=== PATIENT | female | born 2000 | race Caucasian/White ===

== ENCOUNTER 2024-08-27 09:32 | Emergency (ER) | payer OTHER ==
[2024-08-27 10:27] LABS: Specific Gravity 1.023 (1.005-1.030); Sqamous Epithelial <5 /HPF (None Seen); Urine Bacteria <20 /HPF (<20); Urine Bilirubin NEGATIVE (Negative); Urine Blood Negative (Negative); Urine Clarity Turbid (Clear); Urine Color Yellow (Yellow); Urine Culture Reflex Order REFLEXED; Urine Glucose NEGATIVE (Negative); Urine Ketones NEGATIVE (Negative); Urine Microscopic Reflex YN ORDER UMIC; Urine Mucus Slight /HPF (None Seen); Urine Nitrite NEGATIVE (Negative); Urine Protein TRACE (Negative); Urine RBC <5 /HPF (None Seen); Urine Urobilinogen Normal (Normal)
[2024-08-27 10:34] LABS: Absolute Basophils 0.1 K/uL (0-0.5); Absolute Eosinophils 0.2 K/uL (0-0.5); Absolute Lymphocytes (CBC) 1.7 K/uL (0.7-4.9); Absolute Monocytes 0.5 K/uL (0.1-1.3); Absolute Neutrophil 4.1 K/uL (1.8-8.0); Basophils % 0.8 % (0-1.3); Eosinophils % 3.4 % (0-4.4); Hematocrit 38.4 % (36.0-45.0); Hemoglobin 13.1 g/dL (12.0-15.0); Lymphocytes % 25.8 % (15.3-44.8); MCHC 34.2 g/dL (32.0-36.0); MCV 87.9 fL (80-100); MPV 9.7 fL (7.6-11.3); Monocytes % 7.6 % (3.3-12.3); Neutrophils % 62.4 % (41.7-73.7); Nucleated Red Blood Cells % 0.1 % (0-0); Platelets 278 thou/uL (152-406); RBC Red Blood Cell Count 4.37 M/uL (3.86-4.86); Red Cell Distribution Width 13.3 % (12.1-15.2)
[2024-08-27 10:40] LABS: Albumin 3.8 g/dL (3.4-5.0); Albumin/Globulin Ratio 0.9 (1.1-1.8); Anion Gap 5.6 mEq/L (5.0-15.0); Bilirubin Total 0.6 mg/dL (0.2-1.0); Globulin 4.3 g/dL (2.3-3.5); Potassium 3.6 mEq/L (3.5-5.1); Protein, Total 8.1 g/dL (6.4-8.2)
--- NOTE | 2024-08-27 11:01 | RAD REPORT ---
EXAMINATION: CT ABDOMEN AND PELVIS WITH CONTRAST CLINICAL INDICATION: Female, 24 years old.groin pain TECHNIQUE: CT abdomen and pelvis was performed, after the administration of IV contrast, as per [facility] protocol. Axial, sagittal and coronal reconstructions were obtained. One or more of the following dose reduction techniques were used: Automated exposure control, adjustment of the mA and/o r kV according to patient size, and/or iterative reconstruction. Unless otherwise specified, incidental findings do not require dedicated imaging follow-up. [id number]. COMPARISON: No prior exam. FINDINGS: LOWER CHEST: The visualized lung bases are clear. LIVER: Normal in size and contour. No focal lesion. GALLBLADDER/BILE DUCT: No biliary ductal dilatation.? PANCREAS: No significant abnormality. SPLEEN: Normal size. No focal lesion. ADRENALS: Normal; no mass. KIDNEYS AND URETERS: Mild right renal scarring. Punctate left nephrolithiasis. No ureteral calculi id entified. GASTROINTESTINAL TRACT: Normal appendix. No bowel obstruction. PERITONEUM: Trace pelvic free fluid. LYMPH NODES: Enlarged lymph nodes in the right inguinal region. For example, there is a right inguina l lymph node measuring 17 mm with some stranding. Prominent retroperitoneal lymph nodes. ABDOMINAL AORTA AND OTHER VESSELS: Normal caliber aorta and IVC. URINARY BLADDER: Decompressed, possible bladder wall thickening. REPRODUCTIVE ORGANS: No pathologic process MUSCULOSKELETAL: No acute or suspicious osseous abnormality. ADDITIONAL FINDINGS: None. IMPRESSION: 1. No definite acute findings within the abdomen or pelvis. Normal appendix. Trace pelvic free fluid may be physiologic. 2. Mild bladder wall thickening. Correlate with urinalysis to exclude cystitis. Areas of scarring at the right and left kidney could reflect sequela of remote polynephritis. Tiny nonobstructing stone in the left kidney. 3. Enlarged right inguinal lymph nodes with stranding suggesting an infectious or inflammatory proces s that may be present within the right lower extremity. Suggest clinical follow-up.
--- NOTE | 2024-08-27 11:09 | EDPHYS ---
Physician Documentation [facility] Name: Staci Perez Age: 24 yrs Sex: Female : 2000 Arrival Date: 08/27/2024 Time: 09:32 Bed 4 Private MD: ED Physician Demario Davidson HPI: 08/27 09:53 This 24 yrs old Female presents to ER via Ambulatory with complaints of groin pain. sb4 09:53 patient reports pain, swelling, and tenderness in her right groin. states it started a sb4 few days ago and has progressively gotten worse- more swollen and painful. states that the pain radiates down her leg. denies any injury. denies any pain with urination, burning with urination. hematuria, vaginal bleeding or discharge. no n/v/d. has not been sick. does report a history of kidney stones. 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 - Infectious Disease History:: Denies. - Social history:: Smoking status: Patient denies any tobacco usage or history of. ROS: 09:53 Positive for per HPI, sb4 09:53 Constitutional: Negative for fever, chills, and weight loss, 09:55 All other systems are negative, sb4 Exam: 09:55 Constitutional: This is a well developed, well nourished patient who is awake, alert, sb4 and in no acute distress. Head/Face: Normocephalic, atraumatic. Eyes: Extra-ocular motions intact. Periorbital areas with no swelling, redness, or edema. ENT: Mucous membranes moist. Respiratory: No increased work of breathing, no retractions or nasal flaring. Abdomen/GI: Soft, non-tender, no distension. 09:55 : CVA tenderness, is absent, tenderness right groin, no mass, cellulitis, or abscess noted, Vital Signs: 09:43 BP 117 / 83; Pulse 100; Resp 16; Temp 98.6; Pulse Ox 98% ; Weight 63.5 kg; Height 5 ft. iw 3 in. ; Pain 3/10; 10:40 BP 119 / 73; Pulse 66; Resp 16 S; Pulse Ox 100% on R/A; aa5 09:43 Body Mass Index 24.80 (63.50 kg, 160.02 cm) iw 09:43 Pain Scale: Adult iw MDM: 09:44 Medical Screening Exam initiated sb4 09:55 Differential diagnosis: uterine fibroids, urinary tract infection, lymphadenopathy, sb4 inguinal hernia. 11:08 Data reviewed: vital signs, nurses notes, lab test result(s), radiologic studies, and sb4 as a result, I will discharge patient. Counseling: I had a detailed discussion with the patient and/or guardian regarding the historical points, exam findings, and any diagnostic results supporting the discharge/admit diagnosis, lab results, radiology results, to return to the emergency department if symptoms worsen or persist or if there are any questions or concerns that arise at home. 08/27 09:52 Order name: CBC with Diff; Complete Time: 10:37 sb4 08/27 09:52 Order name: CMP; Complete Time: 10:45 sb4 08/27 09:52 Order name: Test, Urine; Complete Time: 10:28 sb4 08/27 09:52 Order name: Urinalysis w/ reflexes; Complete Time: 10:30 sb4 08/27 10:32 Order name: Urine Culture EDMN 08/27 09:52 Order name: CT Abd/Pelvis - IV Contrast Only; Complete Time: 11:02 sb4 08/27 09:52 Order name: IV Saline Lock; Complete Time: 10:18 sb4 08/27 09:52 Order name: Labs collected and sent; Complete Time: 10:18 sb4 Administered Medications: 11:37 Drug: Macrobid PO 100 mg PO once; administer with food Route: PO; ph 11:37 Follow up: Response: No adverse reaction ph Disposition Summary: 08/27/24 11:08 Discharge Ordered Notes: Location: Home sb4 Problem: new sb4 Symptoms: are unchanged sb4 Condition: Stable sb4 Diagnosis - Acute cystitis sb4 - Localized enlarged lymph nodes - right inguinal sb4 Followup: sb4 - With: Private Physician - When: 1 week - Reason: Recheck today's complaints, Re-evaluation by your physician Discharge Instructions: - Discharge Summary Sheet sb4 - Urinary Tract Infection, Adult, [id number] sb4 - Lymphadenopathy sb4 Forms: - Antibiotic Education sb4 - Patient Portal Instructions sb4 - Leadership Thank You Letter sb4 Prescriptions: - Macrobid 100 mg Oral Capsule - take 1 capsule ORAL route every 12 hours for 7 days; 14 capsule; Refills: 0, sb4 Product Selection Permitted Addendum: 09/01/2024 12:52 Co-signature as Attending Physician, Demario Davidson MD I agree with the assessment and c doe plan of care. Signatures: Dispatcher [employer] EDMN Demario Davidson MD MD cha Williams, Irene, RN RN iw Sydnie Armstrong RN RN ph Villa, Gloria, LAURY PARoxanna sb4 Corrections: (The following items were deleted from the chart) 08/27 09:45 09:45 PSHx: None; [facility] 09:53 09:53 CBC+H.LAB.BRZ ordered. EDMN EDMN 09:53 09:53 COMPREHENSIVE METABOLIC PANEL+C.LAB.BRZ ordered. EDMN EDMN 09:53 09:53 Test, Urine+UC.LAB.BRZ ordered. EDMN EDMN 09:53 09:53 Urinalysis+U.LAB.BRZ ordered. EDMN EDMN 09:53 09:53 Abdomen Pelvis W Con+CT.RAD.BRZ ordered. EDMN EDMS 09:55 09:53 patient reports pain, swelling, and tenderness in her right groin. states it sb4 started a few days ago and has progressively gotten worse- more swollen and painful. states that the pain radiates down her leg. denies any injury. denies any pain with urination, burning with urination. hematuria, vaginal bleeding or discharge. no n/v/d. has not been sick. sb4
--- NOTE | 2024-08-27 11:09 | ER ---
Nurse's Notes [facility] Name: Staci Perez Age: 24 yrs Sex: Female : 2000 Arrival Date: 08/27/2024 Time: 09:32 Bed 4 Private MD: Diagnosis: Acute cystitis;Localized enlarged lymph nodes-right inguinal Presentation: 08/27 09:43 Chief complaint: Patient states: 5-6 days ago I had pain in right groin , felt sick, iw now it feels swollen and tender to touch , it hurts down my leg. Coronavirus screen: At this time, the client does not indicate any symptoms associated with coronavirus-19. Ebola Screen: No symptoms or risks identified at this time. Initial Sepsis Screen: Does the patient meet any 2 criteria? No. Patient's initial sepsis screen is negative. Does the patient have a suspected source of infection? No. Patient's initial sepsis screen is negative. Risk Assessment: Do you want to hurt yourself or someone else? Patient reports no desire to harm self or others. Onset of symptoms was August 23, 2024. 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 - Infectious Disease History:: Denies. - Social history:: Smoking status: Patient denies any tobacco usage or history of. Screenin:00 [facility] ED Fall Risk Assessment (Adult) History of falling in the last 3 months, aa5 including since admission No falls in past 3 months (0 pts) Confusion or Disorientation No (0 pts) Intoxicated or Sedated No (0 pts) Impaired Gait No (0 pts) Mobility Assist Device Used No (0 pt) Altered Elimination No (0 pt) Score/Fall Risk Level 0 - 2 = Low Risk Oriented to surroundings, Maintained a safe environment, Educated pt \T\ family on fall prevention, incl call for assistance when getting out of bed. Abuse screen: Denies threats or abuse. Nutritional screening: No deficits noted. Tuberculosis screening: No symptoms or risk factors identified. Assessment: 10:00 General: Appears comfortable, Behavior is calm, cooperative, Denies fever, feeling ill, aa5 fatigue, chills. Pain: Complains of pain in right and left groin (worse to right groin) Pain radiates to right leg Pain currently is 3 out of 10 on a pain scale. Quality of pain is described as shooting, tender, Pain began 5 days ago Is continuous. Neuro: Level of Consciousness is awake, alert, obeys commands, Oriented to person, place, time, situation. Cardiovascular: Patient's skin is warm and dry. Respiratory: Airway is patent Respiratory effort is even, unlabored, Respiratory pattern is regular, symmetrical. GI: Abdomen is non-distended, Bowel sounds present X 4 quads. Abd is soft and non tender X 4 quads. Patient currently denies diarrhea, intolerance of fluids, intolerance of food, nausea, vomiting. : Denies burning with urination, inability to void, urinary frequency, urgency. EENT: No signs and/or symptoms were reported regarding the EENT system. Derm: Skin is pink, warm \T\ dry. Musculoskeletal: Range of motion: intact in all extremities. 10:40 Reassessment: Patient is alert, oriented x 3, equal unlabored respirations, skin aa5 warm/dry/pink. Pt sitting up in bed reading a book. . Vital Signs: 09:43 BP 117 / 83; Pulse 100; Resp 16; Temp 98.6; Pulse Ox 98% ; Weight 63.5 kg; Height 5 ft. iw 3 in. ; Pain 3/10; 10:40 BP 119 / 73; Pulse 66; Resp 16 S; Pulse Ox 100% on R/A; aa5 09:43 Body Mass Index 24.80 (63.50 kg, 160.02 cm) iw 09:43 Pain Scale: Adult iw ED Course: 09:35 Patient arrived in ED. ra3 09:38 Gloria Driver PA-C is PHCP. sb4 09:38 Demario Davidson MD is Attending Physician. sb4 09:43 Christie Cameron, FAYE is Primary Nurse. aa5 09:45 Triage completed. iw 10:00 Patient has correct armband on for positive identification. Placed in gown. Bed in low aa5 position. Call light in reach. Side rails up X 1. Pulse ox on. NIBP on. 10:00 Arm band placed on. aa5 10:10 No provider procedures requiring assistance completed. aa5 10:19 Warm blanket given. Verbal reassurance given. am7 10:19 Inserted saline lock: 20 gauge in right antecubital area, using aseptic technique. am7 Blood collected. Flushed with 10 mL NS. 10:53 CT Abd/Pelvis - IV Contrast Only In Process Unspecified. EDMS 11:38 IV discontinued, intact, bleeding controlled, No redness/swelling at site. Pressure ph dressing applied. Administered Medications: 11:37 Drug: Macrobid PO 100 mg PO once; administer with food Route: PO; ph 11:37 Follow up: Response: No adverse reaction ph Medication: 10:10 VIS not applicable for this client. aa5 Outcome: 11:08 Discharge ordered by . sb4 11:37 Patient left the ED. ph 11:38 Discharged to home ambulatory, ph 11:38 Condition: good 11:38 Discharge instructions given to patient, Instructed on discharge instructions, follow up and referral plans. medication usage, Demonstrated understanding of instructions, follow-up care, medications, Prescriptions given X 1, Addendum: 08/30/2024 07:37 Addendum: Culture Results: Positive urine culture. No further action required. Bacteria e b sensitive to prescribed antibiotic. Signatures: Dispatcher [employer] EDMS Mary Quijano RN RN Christie Cameron RN RN aa5 Sydnie Armstrong RN RN Ivis Henry Sophia, PA-Kraol PA-Karol [email or web address] Staci Hicks ra3 Amparo Bermudez am7 Corrections: (The following items were deleted from the chart) 08/27 09:45 09:45 PSHx: None; iw iw
[2024-08-27] MEDS ORDERED: NITROFURAN MACRO 100 MG CAP PO ONE (11:27)
[2024-08-27 11:47] VITALS: TEMP 98.6
[2024-08-27 11:53] VITALS: BP 119/73; O2SAT 100
== END 2024-08-27 11:37 | disposition home or self-care (01) ==
LOC: ER 09:32
DX: N30.00 Acute cystitis without hematuria (principal); R59.0 Localized enlarged lymph nodes
CPT/HCPCS: 87088; 85025; 81001; 87086; 36415; 81025; 87077; 87186; 80053; 74177; 99284; Q9967

== ENCOUNTER 2024-10-25 18:01 | Emergency (ER) | payer OTHER ==
[2024-10-25] MEDS ORDERED: KETOROLAC 30 MG/ML INJ ONE (19:17)
[2024-10-25] MEDS ORDERED: dexAMETHasone 10 MG/ML VIAL ONE (19:17)
[2024-10-25] MEDS ORDERED: DIPHENHYDRAMINE 50 MG/ML VIAL ONE (19:18)
[2024-10-25] MEDS ORDERED: METOCLOPRAMIDE 10 MG/2mL INJ ONE (19:18)
[2024-10-25] MEDS ORDERED: NA CHLORIDE 0.9% 1,000 ML ONE (19:18)
--- NOTE | 2024-10-25 20:24 | ER ---
Nurse's Notes [facility] Name: Staci Perez Age: 24 yrs Sex: Female : 2000 Arrival Date: 10/25/2024 Time: 18:01 Bed 19 Private MD: Diagnosis: Migraine without aura, not intractable Presentation: 10/25 18:51 Chief complaint: Patient states: Flu like symptoms X 1 week. Facial pressure and ld1 drainage. Coronavirus screen: At this time, the client does not indicate any symptoms associated with coronavirus-19. Ebola Screen: No symptoms or risks identified at this time. Initial Sepsis Screen: Does the patient meet any 2 criteria? No. Patient's initial sepsis screen is negative. Does the patient have a suspected source of infection? No. Patient's initial sepsis screen is negative. Risk Assessment: Do you want to hurt yourself or someone else? Patient reports no desire to harm self or others. Onset of symptoms was October 25, 2024. 18:51 Method Of Arrival: Ambulatory ld1 18:51 Acuity: JENARO 4 ld1 Triage Assessment: 18:53 Headache History: Denies prior headaches. General: Appears in no apparent distress. ld1 comfortable, Behavior is calm, cooperative, appropriate for age. Pain: Complains of pain in face Pain does not radiate. Pain currently is 8 out of 10 on a pain scale. Quality of pain is described as throbbing, Pain began suddenly, Is continuous. EENT: No signs and/or symptoms were reported regarding the EENT system. 18:53 Pain: Denies pain. Also complains of no other associated symptoms. Neuro: Level of ld1 Consciousness is awake, alert, obeys commands, Oriented to person, place, time, situation. Cardiovascular: Capillary refill < 3 seconds Patient's skin is warm and dry. Respiratory: Airway is patent Respiratory effort is even, unlabored. GI: Abdomen is flat, non-distended. : No signs and/or symptoms were reported regarding the genitourinary system. Derm: No signs and/or symptoms reported regarding the dermatologic system. Musculoskeletal: No signs and/or symptoms reported regarding the musculoskeletal system. Historical: - Allergies: 18:52 No Known Allergies; ld1 - Home Meds: 18:52 None [Active]; ld1 - PMHx: 18:52 None; ld1 - PSHx: 18:52 section; tubal ligation; ld1 - Immunization history:: Adult Immunizations up to date. - Infectious Disease History:: Denies. - Social history:: Smoking status: Patient denies any tobacco usage or history of. Screenin:25 [facility] ED Fall Risk Assessment (Adult) History of falling in the last 3 months, jj7 including since admission No falls in past 3 months (0 pts) Confusion or Disorientation No (0 pts) Intoxicated or Sedated No (0 pts) Impaired Gait No (0 pts) Mobility Assist Device Used No (0 pt) Altered Elimination No (0 pt) Score/Fall Risk Level 0 - 2 = Low Risk Oriented to surroundings, Maintained a safe environment, Educated pt \T\ family on fall prevention, incl call for assistance when getting out of bed, Assessed \T\ reinforced patient's understanding of fall precautions. Abuse screen: Denies threats or abuse. Nutritional screening: No deficits noted. Tuberculosis screening: No symptoms or risk factors identified. Assessment: 19:25 Reassessment: ASSUMED CARE OF PT. PT LYING IN BED WITH LIGHT DIMMED . General: Appears jj7 in no apparent distress. uncomfortable, Behavior is calm, cooperative, appropriate for age. Pain: Complains of pain in left frontal area, left temporal area and left restoration Pain currently is 6 out of 10 on a pain scale. Neuro: Reports headache in left. GI: Reports nausea. Vital Signs: 18:51 Weight 65.77 kg; Height 5 ft. 4 in. ; Pain 0/10; ld1 19:25 BP 140 / 92; Pulse 79; Resp 17; Pulse Ox 99% ; Pain 6/10; jj7 20:38 BP 118 / 63; Pulse 78; Resp 17; Temp 97.4; Pulse Ox 99% ; Pain 0/10; jj7 18:51 Body Mass Index 24.89 (65.77 kg, 162.56 cm) ld1 18:51 Pain Scale: Adult ld1 19:25 Pain Scale: Adult jj7 20:38 Pain Scale: Adult jj7 Domi Coma Score: 20:25 Eye Response: spontaneous(4). Motor Response: obeys commands(6). Verbal Response: kb oriented(5). Total: 15. ED Course: 18:30 Patient arrived in ED. kb 18:30 Darlene Gomez FNP-C is [facility]. kb 18:30 Allison Browne MD is Attending Physician. kb 18:52 Triage completed. ld1 18:53 Arm band placed on right wrist. ld1 19:12 Pelon Gandara RN is Primary Nurse. jj7 19:25 Patient has correct armband on for positive identification. Placed in gown. Bed in low jj7 position. Call light in reach. Provided Education on: USE OF CALL JOHNSON. Client placed on continuous cardiac and pulse oximetry monitoring. NIBP monitoring applied. Door closed. Lights dimmed. Pillow given. Diet: Patient given ice chips. 19:25 Inserted saline lock: 20 gauge in left antecubital area, using aseptic technique. jj7 Flushed with 10 mL NS. 20:38 No provider procedures requiring assistance completed. IV discontinued, intact, jj7 bleeding controlled, No redness/swelling at site. Pressure dressing applied. Administered Medications: 19:28 Drug: NS 0.9% IV 1000 ml IV at 1000 ml once; to be given as a bolus over 60 minutes jj7 Route: IV; Rate: 1000 ml; Site: left antecubital; 20:37 Follow up: IV Status: Completed infusion jj7 19:32 Drug: Decadron - Dexamethasone IVP 10 mg IVP once Route: IVP; Site: left antecubital; jj7 20:36 Follow up: Response: Marked relief of symptoms; Pain is decreased jj7 19:33 Drug: metoCLOPramide IVP 10 mg IVP once; over 1 to 2 minutes Route: IVP; Site: left jj7 antecubital; 20:37 Follow up: Response: Marked relief of symptoms; Pain is decreased jj7 19:33 Drug: diphenhydrAMINE IVP 12.5 mg IVP once Route: IVP; Site: left antecubital; jj7 20:37 Follow up: Response: Marked relief of symptoms; Pain is decreased jj7 19:33 Drug: Ketorolac IVP 15 mg IVP once Route: IVP; Site: left antecubital; jj7 20:37 Follow up: Response: Marked relief of symptoms; Pain is decreased jj7 Medication: 19:25 VIS not applicable for this client. jj7 Outcome: 20:23 Discharge ordered by . nina 20:38 Discharged to home ambulatory, jj7 20:38 Condition: improved 20:38 Discharge instructions given to patient, Instructed on discharge instructions, Demonstrated understanding of instructions, Prescriptions given X 20:42 Patient left the ED. jj7 Signatures: Darlene Gomez FNP-C FNP-Kate Soriano RN RN ld1 Pelon Gandara RN RN jj7
--- NOTE | 2024-10-25 20:24 | EDPHYS ---
Physician Documentation [facility] Name: Staci Perez Age: 24 yrs Sex: Female : 2000 Arrival Date: 10/25/2024 Time: 18:01 Bed 19 Private MD: ED Physician Allison Browne HPI: 10/25 20:25 This 24 yrs old Female presents to ER via Ambulatory with complaints of Headache, Flu kb Symptoms. 20:25 Patient is a 24-year-old female who has had a migraine, body aches, congestion and kb loose stool that started 1 week ago. States all of her children tested positive for the flu. States the body aches, congestion and loose stool resolved after about 4 5 days but she has continued to have the migraine. Reports history of migraines. States this 1 is similar to previous but is lasted longer than normal.. Historical: - Allergies: 18:52 No Known Allergies; ld1 - Home Meds: 18:52 None [Active]; ld1 - PMHx: 18:52 None; ld1 - PSHx: 18:52 section; tubal ligation; ld1 - Immunization history:: Adult Immunizations up to date. - Infectious Disease History:: Denies. - Social history:: Smoking status: Patient denies any tobacco usage or history of. ROS: 20:25 Constitutional: As per HPI kb Exam: 20:25 Constitutional: This is a well developed, well nourished patient who is awake, alert, kb and in no acute distress. Head/Face: Normocephalic, atraumatic. Eyes: Pupils equal round and reactive to light, extra-ocular motions intact. Lids and lashes normal. Conjunctiva and sclera are non-icteric and not injected. Cornea within normal limits. Periorbital areas with no swelling, redness, or edema. ENT: Moist Mucous membranes Cardiovascular: Regular rate Respiratory: Respirations even and unlabored. No increased work of breathing. Talking in full sentences Abdomen/GI: Soft, non-tender. No distention Skin: Warm, dry with normal turgor. Normal color. MS/ Extremity: Pulses equal, no cyanosis. Neurovascular intact. Full, normal range of motion. Neuro: Awake and alert, GCS 15, oriented to person, place, time, and situation. Vital Signs: 18:51 Weight 65.77 kg; Height 5 ft. 4 in. ; Pain 0/10; ld1 19:25 BP 140 / 92; Pulse 79; Resp 17; Pulse Ox 99% ; Pain 6/10; jj7 20:38 BP 118 / 63; Pulse 78; Resp 17; Temp 97.4; Pulse Ox 99% ; Pain 0/10; jj7 18:51 Body Mass Index 24.89 (65.77 kg, 162.56 cm) ld1 18:51 Pain Scale: Adult ld1 19:25 Pain Scale: Adult jj7 20:38 Pain Scale: Adult jj7 Domi Coma Score: 20:25 Eye Response: spontaneous(4). Motor Response: obeys commands(6). Verbal Response: kb oriented(5). Total: 15. MDM: 18:30 Medical Screening Exam initiated kb 20:25 Differential diagnosis: dehydration, migraine, tension headache, sinusitis. Data kb reviewed: vital signs, nurses notes. Counseling: I had a detailed discussion with the patient and/or guardian regarding the historical points, exam findings, and any diagnostic results supporting the discharge/admit diagnosis, the need for outpatient follow up, a family practitioner, to return to the emergency department if symptoms worsen or persist or if there are any questions or concerns that arise at home. 20:26 Response to treatment: the patient's symptoms have resolved after treatment. 10/25 18:39 Order name: IV Start; Complete Time: 19:32 kb Administered Medications: 19:28 Drug: NS 0.9% IV 1000 ml IV at 1000 ml once; to be given as a bolus over 60 minutes jj7 Route: IV; Rate: 1000 ml; Site: left antecubital; 20:37 Follow up: IV Status: Completed infusion jj7 19:32 Drug: Decadron - Dexamethasone IVP 10 mg IVP once Route: IVP; Site: left antecubital; jj7 20:36 Follow up: Response: Marked relief of symptoms; Pain is decreased jj7 19:33 Drug: metoCLOPramide IVP 10 mg IVP once; over 1 to 2 minutes Route: IVP; Site: left j antecubital; 20:37 Follow up: Response: Marked relief of symptoms; Pain is decreased jj7 19:33 Drug: diphenhydrAMINE IVP 12.5 mg IVP once Route: IVP; Site: left antecubital; jj7 20:37 Follow up: Response: Marked relief of symptoms; Pain is decreased jj7 19:33 Drug: Ketorolac IVP 15 mg IVP once Route: IVP; Site: left antecubital; jj7 20:37 Follow up: Response: Marked relief of symptoms; Pain is decreased jj7 Disposition Summary: 10/25/24 20:23 Discharge Ordered Notes: Location: Home kb Condition: Stable kb Diagnosis - Migraine without aura, not intractable kb Followup: kb - With: Emergency Department - When: As needed - Reason: Worsening of condition Followup: kb - With: Private Physician - When: 2 - 3 days - Reason: Recheck today's complaints, Continuance of care, Re-evaluation by your physician Discharge Instructions: - Discharge Summary Sheet kb - Migraine Headache, [id number] kb Forms: - Medication Reconciliation Form kb - Antibiotic Education kb - Prescription Opioid Use kb - Patient Portal Instructions kb - Leadership Thank You Letter kb Signatures: Darlene Gomez, ABHISHEK KHAN-Kate Soriano, RN RN ld1 Pelon Gandara RN RN jj7
[2024-10-26 00:46] VITALS: O2SAT 99
[2024-10-26 00:48] VITALS: BP 118/63; TEMP 97.4
== END 2024-10-25 20:42 | disposition home or self-care (01) ==
LOC: ER 18:01
DX: G43.009 Migraine without aura, not intractable, without status migrainosus (principal)
CPT/HCPCS: 96361; 96375; 96374; 99284; J2765; J1200; J1100; J7030